=== PATIENT | male | born 1995 | race Caucasian/White ===

== ENCOUNTER 2017-11-12 21:50 | Inpatient (IN) | payer OTHER ==
[~2017-11-12] VITALS: Ht 170.2 cm; Wt 58.2 kg
[2017-11-12 23:17] LABS: BASO % 0.1 %; BASO ABS # 0.01 K/uL (0-0.2); EOS % 0.8 %; EOS ABS # 0.07 K/uL (0-0.5); IG# 0.01 K/uL (0.00-0.02); LYMPH % 31.9 %; LYMPH ABS # 2.77 K/uL (1.2-3.4); MEAN CELL VOLUME 87.4 fL (80-100); MEAN CORPUSCULAR HEMOGLOBIN 30.5 pg (25-34); MEAN CORPUSCULAR HGB CONC 34.9 g/dl (32-36); MONO % 10.6 %; MONO ABS # 0.92 K/uL (0.11-0.59); NEUT % 56.5 %; NEUT ABS # 4.89 K/uL (1.4-6.5); PLATELET COUNT 307 K/uL (130-400); RED CELL DISTRIBUTION WIDTH CV 12.5 % (11.5-14.5); RED CELL DISTRIBUTION WIDTH SD 40.4 fL (36.4-46.3); WHITE BLOOD COUNT 8.67 K/uL (4.8-10.8)
[2017-11-12 23:45] LABS: ALBUMIN 4.6 gm/dl (3.4-5.0); ALT/SGPT 37 U/L (12-78); AST/SGOT 47 U/L (15-37); BLOOD UREA NITROGEN 15 mg/dl (7-18); CARBON DIOXIDE 28 mmol/L (21-32); CREATININE 1.09 mg/dl (0.60-1.40); GLUCOSE 81 mg/dl (70-99); POTASSIUM 3.4 mmol/L (3.5-5.1); SODIUM 138 mmol/L (136-145)
[2017-11-12 23:56] LABS: ALKALINE PHOSPHATASE 68 U/L (45-117); TOTAL PROTEIN 8.1 gm/dl (6.4-8.2)
--- NOTE | 2017-11-13 01:21 | EMERGENCY ROOM VISIT NOTE ---
History Report prepared by Dione: Kayleigh Street Under the Supervision of: Dr. Hector Kraft D.O. First contact with patient: 21:59 Chief Complaint: MENTAL HEALTH EVALUATION Stated Complaint: MHID History of Present Illness The patient is a 22 year old male who presents to the Emergency Room with complaints of an episode of suicidal gesture SACK CLEANING HAND. The patient presents to the ED with police. His ex-girlfriend reports that the patient held a knife to his throat today and threatened to kill himself. He states that the knife was a plastic knife. He notes that he made the statement about killing himself after putting the knife down. He states that he has been feeling depressed since his grandmother 3 months ago. He has also been upset because his girlfriend of 3 years has been seeing other people. He denies any thoughts of killing himself. He does not have any physical complaints. Source of History: patient, nursing staff Onset: SACK CLEANING HAND Position: other (global) Quality: other (suicidal gesture) Timing: other (episodic) Associated Symptoms: No abdominal pain Note: Pt reports feeling depressed. Pt denies thoughts of suicide. Review of Systems See HPI for pertinent positives & negatives. A total of 10 systems reviewed and were otherwise negative. Past Medical & Surgical Medical Problems: (1) No chronic problems Family History No pertinent family history stated. Social History Smoking Status: Never Smoker Marital Status: single Current/Historical Medications No Active Prescriptions or Reported Meds Allergies Coded Allergies: No Known Allergies (Unverified , 11/12/17) Physical Exam Vital Signs Date Time Temp Pulse Resp B/P (MAP) Pulse Ox O2 Delivery O2 Flow Rate FiO2 11/12/17 22:00 36.5 118 20 123/89 99 Room Air Physical Exam GENERAL: Sitting up in bed, alert, well appearing, well nourished, no distress, non-toxic EYE EXAM: normal conjunctiva. OROPHARYNX: no exudate, no erythema, lips, buccal mucosa, and tongue normal and mucous membranes are moist NECK: supple, no nuchal rigidity, no adenopathy, non-tender LUNGS: Clear to auscultation. Normal chest wall mechanics HEART: no murmurs, S1 normal and S2 normal ABDOMEN: abdomen soft, non-tender, normo-active bowel sounds, no masses, no rebound or guarding. BACK: Back is symmetrical on inspection and there is no deformity, no midline tenderness, no CVA tenderness. SKIN: no rashes and no bruising UPPER EXTREMITIES: upper extremities are grossly normal. LOWER EXTREMITIES: No pitting edema. NEURO EXAM: Normal sensorium, cranial nerves II-XII grossly intact, normal speech, no gross weakness of arms, no gross weakness of legs. PSYCH: Admits to making suicidal statement with plastic knife, denies wanting to kill himself. Medical Decision & Procedures Laboratory Results 11/12/17 22:41 Red Blood Count 4.92, Mean Corpuscular Volume 87.4, Mean Corpuscular Hemoglobin 30.5, Mean Corpuscular Hemoglobin Concent 34.9, Mean Platelet Volume 9.0, Neutrophils (%) (Auto) 56.5, Lymphocytes (%) (Auto) 31.9, Monocytes (%) (Auto) 10.6, Eosinophils (%) (Auto) 0.8, Basophils (%) (Auto) 0.1, Neutrophils # (Auto ) 4.89, Lymphocytes # (Auto) 2.77, Monocytes # (Auto) 0.92, Eosinophils # (Auto ) 0.07, Basophils # (Auto) 0.01 11/12/17 22:41 Test 11/12/17 22:41 11/12/17 23:10 White Blood Count 8.67 K/uL (4.8-10.8) Red Blood Count 4.92 M/uL (4.7-6.1) Hemoglobin 15.0 g/dL (14.0-18.0) Hematocrit 43.0 % (42-52) Mean Corpuscular Volume 87.4 fL (80-100) Mean Corpuscular Hemoglobin 30.5 pg (25-34) Mean Corpuscular Hemoglobin Concent 34.9 g/dl (32-36) Platelet Count 307 K/uL (130-400) Mean Platelet Volume 9.0 fL (7.4-10.4) Neutrophils (%) (Auto) 56.5 % Lymphocytes (%) (Auto) 31.9 % Monocytes (%) (Auto) 10.6 % Eosinophils (%) (Auto) 0.8 % Basophils (%) (Auto) 0.1 % Neutrophils # (Auto) 4.89 K/uL (1.4-6.5) Lymphocytes # (Auto) 2.77 K/uL (1.2-3.4) Monocytes # (Auto) 0.92 K/uL (0.11-0.59) Eosinophils # (Auto) 0.07 K/uL (0-0.5) Basophils # (Auto) 0.01 K/uL (0-0.2) RDW Standard Deviation 40.4 fL (36.4-46.3) RDW Coefficient of Variation 12.5 % (11.5-14.5) Immature Granulocyte % (Auto) 0.1 % Immature Granulocyte # (Auto) 0.01 K/uL (0.00-0.02) Anion Gap 8.0 mmol/L (3-11) Estimated GFR () 111.1 Estimated GFR (Non- 95.8 BUN/Creatinine Ratio 14.2 (10-20) Calcium Level 9.0 mg/dl (8.5-10.1) Total Bilirubin 0.6 mg/dl (0.2-1) Direct Bilirubin 0.2 mg/dl (0-0.2) Aspartate Amino Transf (AST/SGOT) 47 U/L (15-37) Alanine Aminotransferase (ALT/SGPT) 37 U/L (12-78) Alkaline Phosphatase 68 U/L (45-117) Total Protein 8.1 gm/dl (6.4-8.2) Albumin 4.6 gm/dl (3.4-5.0) Thyroid Stimulating Hormone (TSH) 2.490 uIu/ml (0.300-4.500) Salicylates Level < 1.7 mg/dl (2.8-20) Acetaminophen Level < 2 ug/ml (10-30) Ethyl Alcohol mg/dL < 3.0 mg/dl (0-3) Urine Color YELLOW Urine Appearance CLEAR (CLEAR) Urine pH 5.5 (4.5-7.5) Urine Specific [place] 1.016 (1.000-1.030) Urine Protein NEG (NEG) Urine Glucose (UA) NEG (NEG) Urine Ketones NEG (NEG) Urine Occult Blood NEG (NEG) Urine Nitrite NEG (NEG) Urine Bilirubin NEG (NEG) Urine Urobilinogen NEG (NEG) Urine Leukocyte Esterase NEG (NEG) Urine Opiates Screen NEG (NEG) Urine Methadone, Qualitative NEG (NEG) Urine Barbiturates NEG (NEG) Urine Phencyclidine (PCP) Level NEG (NEG) Ur Amphetamine/Methamphetamine NEG (NEG) MDMA (Ecstasy) Screen NEG (NEG) Urine Benzodiazepines Screen POS (NEG) Urine Cocaine Metabolite NEG (NEG) Urine Marijuana (THC) POS (NEG) Laboratory results per my review. ED Course ED COURSE: Vital signs were reviewed and showed tachycardia. The patients medical record was reviewed The above diagnostic studies were performed and reviewed. ED treatments and interventions as stated above. 2214: The patient was evaluated in room A8. A complete history and physical examination was performed. 0120: Upon reevaluation, the patient is resting comfortably. I discussed my findings with the patient and he understands and agrees with the treatment plan. Based on the patients age, coexisting illnesses, exam and lab findings the decision to treat as an inpatient was made. The patient remained stable while under my care. The patient was accepted to [address] [place] [address]. Medical Decision Differential diagnosis: Etiologies such as mood disorder, infection, hypoglycemia, electrolyte abnormalities, cardiac sources, intracerebral event, toxicologic, neurologic, as well as others were entertained. Patient is a 20-year-old male who presents to ER brought in by angie. Port he took a knife and held it to his throat and stated that he is going to kill himself. He adamantly denies this on my exam. He has no other complaints. CBC all BMP, LFTs, bilirubin and TSH was unremarkable. Benzos and marijuana was positive. Alcohol negative. Salicylates and Tylenol negative. UA negative. Through 2 was petitioned by ex-girlfriend. Patient is extremely unreliable as he denied that it was a little knife and denies that at all happened. He was eventually agreeable to coming in on a 201. Patient will be admitted to [facility]. Medication Reconcilliation Current Medication List: was personally reviewed by me Blood Pressure Screening Patient's blood pressure: Normal blood pressure Blood pressure disposition: Did not require urgent referral Impression Primary Impression: Mood disorder Scribe Attestation The scribe's documentation has been prepared under my direction and personally reviewed by me in its entirety. I confirm that the note above accurately reflects all work, treatment, procedures, and medical decision making performed by me. Departure Information Dispostion Mental Health Acute Care Prescriptions No Active Prescriptions or Reported Meds Referrals No Doctor, Assigned (PCP) Patient Instructions My [facility]
[2017-11-13] MEDS ORDERED: NURSING VERBAL MED ORDER ONE (02:15)
[2017-11-13 02:28] VITALS: O2SAT 99
[2017-11-13] MEDS ORDERED: BISMUTH SUBSALICYLATE PER ML OMNICELL CHARGE PO PRN (03:15)
[2017-11-13] MEDS ORDERED: ACETAMINOPHEN 325 MG TAB PO PRN (03:15)
[2017-11-13] MEDS ORDERED: ALUMINUM/MAGNESIUM SUSP 30 ML UDC PO PRN (03:15)
[2017-11-13] MEDS ORDERED: hydrOXYzine HCL 25 MG TAB PO PRN ×2 (03:15)
[2017-11-13] MEDS ORDERED: SODIUM CHLORIDE 0.65% NA SOLN 45 ML (OCEAN) PRN (03:15)
[2017-11-13] MEDS ORDERED: MAGNESIUM HYDROXIDE SUSP 30 ML UDC PO PRN (03:15)
[2017-11-13 05:47] VITALS: BP 116/77; PULSE 79; TEMP 35.8; BMI 20.1
[2017-11-13 06:01] VITALS: BP 116/77; PULSE 79; TEMP 35.8; Ht 170.2 cm; Wt 58.2 kg
[2017-11-13 07:12] VITALS: BP_SYST 138; BP_SYST 140; BP_DIAS 84; BP_DIAS 88; PULSE 105; PULSE 121; TEMP 36.4
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
[2017-11-13] MEDS ORDERED: COUGH DROP (SUGAR FREE) LOZ 24 LOZ/1 BOX LOZ PRN (11:00)
[2017-11-14 06:40] VITALS: BP_SYST 130; BP_SYST 154; BP_DIAS 109; BP_DIAS 91; PULSE 105; PULSE 120; TEMP 36.4
--- NOTE | 2017-11-14 11:19 | Psych Management Progress Note ---
Psychiatry Miscellaneous Date of Service: Nov 14, 2017. Patient seen, MS assessed. Rates mood as 9/10 and "relieved". Encouraged cooperation with care and treatment plan as outlined by allied health prescriber. Monitor BP/P, he attributes to anxiety around hospitalization rather than any subjective withdrawal. May benefit from prn clonidine.
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
[2017-11-14] MEDS ORDERED: CLONIDINE HCL 0.1 MG TAB PO PRN (13:15)
[2017-11-14 14:34] VITALS: BP 112/71; PULSE 96
[2017-11-14 21:48] VITALS: BP 112/76; PULSE 76
[2017-11-15 07:01] VITALS: BP_SYST 134; BP_SYST 141; BP_DIAS 95; PULSE 103; PULSE 98; TEMP 36.5
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
[2017-11-15] MEDS ORDERED: COUGH DROP (SUGAR FREE) LOZ 24 LOZ/1 BOX LOZ PRN (11:00)
[2017-11-15 14:00] VITALS: BP 130/78; PULSE 80
[2017-11-15 22:06] VITALS: BP 129/78; PULSE 74; TEMP 36.9
[2017-11-16 07:00] VITALS: BP_SYST 136; BP_SYST 149; BP_DIAS 77; BP_DIAS 81; PULSE 114; PULSE 92; TEMP 36.6
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
[2017-11-16 14:10] VITALS: BP 131/70; PULSE 101
[2017-11-16 14:12] VITALS: BP 131/70; PULSE 101
[2017-11-16 22:01] VITALS: BP 152/78; PULSE 103
[2017-11-17 06:59] VITALS: BP_SYST 134; BP_SYST 140; BP_DIAS 90; BP_DIAS 91; PULSE 105; PULSE 114; TEMP 36.6
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
== END 2017-11-17 10:54 | disposition home or self-care (01) | DRG 881 ==
LOC: EDBD 21:50 → C.EDA 21:52 → C.MHU 11-13 02:10
PROVIDERS: ADMIT Psychiatry & Neurology Child & Adolescent Psychiatry; ATTEND Psychiatry & Neurology Psychiatry
DX: F32.9 Major depressive disorder, single episode, unspecified (principal); R45.851 Suicidal ideations; F12.10 Cannabis abuse, uncomplicated; F19.10 Other psychoactive substance abuse, uncomplicated